=== PATIENT | female | born 1970 | race Caucasian/White ===

== ENCOUNTER → 2016-08-14 | Outpatient (CLI) | payer BC ==
[~2016-08-14] MED LIST: ABILIFY5 MG PO; ALDACTONE PO; ALDACTONE25 MG PO; ARIPIPRAZOLE5 MG PO; ASCORBIC ACID500 M2 PO; BUMEX2 MG PO; CARVEDILOL25 MG PO; CHEWABLE ASPIRI81 MG PO; DIGOX0.25 MG PO; EFFEXOR75 M3 PO; FLORANEX T1 TAB.CHE3 PO; GABAPENTIN300 MG PO; KEPPRA500 M2 PO; LISINOPRIL10 MG PO; LO LOESTRIN FE1 EACH PO; NEXIUM40 MG/PACK PO; OMEPRAZOLE40 M1 PO; PRILOSEC PO; ZOFRAN ODT4 MG PO; [UNRECOGNIZED DRUG - OTHER] PO
--- NOTE | ~2016-08-14 | EKG ---
PATIENT: JERARDO GIFFORD UNIT #: [id number] Ventricular Rate: 65 BPM Atrial Rate: 65 BPM P-R Interval: 136 ms QRS Duration: 96 ms Q-T Interval: 422 ms QTC Calculation(Bezet): 438 ms P [place]: 47 degrees Calculated R [place]: 3 degrees Calculated T [place]: 87 degrees Diagnosis Line: Normal sinus rhythm Diagnosis Line: Normal ECG Diagnosis Line: When compared with ECG of 27-JUL-2016 07:15, Diagnosis Line: Nonspecific T wave abnormality no longer evident Diagnosis Line: in Inferior leads Diagnosis Line: T wave inversion no longer evident in Lateral Diagnosis Line: leads Diagnosis Line: QT has lengthened Diagnosis Line: Confirmed by KEYONA WASSERMAN, ZHEN ([id number]) on 08/16/2016 Diagnosis Line: 6:22:55 PM INTERPRETING MD: KEYONA WASSERMAN
[2016-08-14 09:19] LABS: HEMATOCRIT 36.4 % (35.0-45.0); HEMOGLOBIN 11.9 gm/dL (12.0-16.0); MEAN CORPUSCULAR HEMOGLOBIN 30.1 PG (28-34); MEAN CORPUSCULAR HGB CONC 32.7 g/dL (30-36); MEAN PLATELET VOLUME 7.7 FL (6.5-11.5); RED BLOOD COUNT 3.95 X10e (3.90-5.30)
[2016-08-14 09:32] LABS: PARTIAL THROMBOPLASTIN TIME 26.5 SECONDS (23.5-31.3); PROTHROMBIN TIME (PATIENT) 10.2 SECONDS (9.6-11.5)
[2016-08-14 09:54] LABS: BLOOD UREA NITROGEN 19 mg/dL (9-23); CARBON DIOXIDE 29 mmol/L (22-31); CHLORIDE 101 mmol/L (100-111); GLOM FILT RATE Estimated ABOVE60 mL/min (>60); GLUCOSE FASTING 112 mg/dL (70-110); POTASSIUM 4.5 mmol/L (3.5-5.1); SODIUM 140 mmol/L (135-145)
== END | disposition home or self-care (01) ==
LOC: CCVL 08:39
PROVIDERS: Internal Medicine Cardiovascular Disease
DX: R07.89 Other chest pain (principal); R06.09 Other forms of dyspnea; I25.2 Old myocardial infarction; E78.5 Hyperlipidemia, unspecified; K21.9 Gastro-esophageal reflux disease without esophagitis; F17.200 Nicotine dependence, unspecified, uncomplicated; I11.0 Hypertensive heart disease with heart failure; I50.9 Heart failure, unspecified; G40.909 Epilepsy, unspecified, not intractable, without status epilepticus; Z88.0 Allergy status to penicillin; Z88.1 Allergy status to other antibiotic agents; Z88.8 Allergy status to other drugs, medicaments and biological substances
CPT/HCPCS: 36415; 80048; 82810; 85027; 85610; 85730; 93005; C1769; C1887; C1894; J1644; J2250; J3010